=== PATIENT | male | born 1930 | race Caucasian/White ===

== ENCOUNTER 2017-02-08 09:36 | Emergency (ER) | payer OTHER ==
[~2017-02-08] VITALS: Ht 180.3 cm; Wt 83.8 kg
[~2017-02-08 09:36] MED LIST: ATEN25TA PO; DOXA1TAB2 PO; METH4TAB2 PO; METH750T2 PO; OXYC5TAB3 PO
[2017-02-08] MEDS ORDERED: SODIUM CHLORIDE 0.9% 1,000ML IVBOLUS ONE (10:30)
[2017-02-08 10:42] LABS: HEMOGLOBIN 14.6 g/dL (13.7-18.0)
[2017-02-08 10:54] LABS: BLOOD UREA NITROGEN 20 mg/dL (7-18)
[2017-02-08 10:58] LABS: IS PT STATUS REG ER OR PRE ER? YES
[2017-02-08 12:10] VITALS: BP 148/51
== END 2017-02-08 12:38 | disposition home or self-care (01) ==
LOC: ED 11:22
DX: E86.0 Dehydration (principal); E86.1 Hypovolemia; R07.89 Other chest pain; I10 Essential (primary) hypertension; E11.9 Type 2 diabetes mellitus without complications
CPT/HCPCS: 36415; 70450; 71010; 80048; 81003; 82040; 83605; 84484; 85025; 93005; 96360; 99285; J7030

== ENCOUNTER 2018-12-12 07:41 | Observation (INO) | payer MEDICARE, OTHER ==
[~2018-12-12] VITALS: Ht 182.9 cm; Wt 84.9 kg
--- NOTE | 2018-12-12 08:08 | NUR ---
MD IN ROOM. SON AT BEDSIDE.
[2018-12-12 08:48] LABS: BASOPHILS # (AUTO) 0.02 x10^3/uL (0-0.1); BASOPHILS % (AUTO) 0 % (0-1); EOSINOPHILS # (AUTO) 0.12 x10^3/uL (0-0.4); EOSINOPHILS % (AUTO) 2 % (1-7); LYMPHOCYTES # (AUTO) 1.39 x10^3/uL (1-3.4); LYMPHOCYTES % (AUTO) 21 % (22-44); MD NO; MEAN CORPUSCULAR HEMOGLOBIN 31.7 pg (27.5-34.5); MEAN CORPUSCULAR HGB CONC 33.2 g/dL (33.2-36.2); MEAN CORPUSCULAR VOLUME 95.6 fL (81-97); MEAN PLATELET VOLUME 8.8 fL (7.4-10.4); MONOCYTES # (AUTO) 0.58 x10^3/uL (0.2-0.8); MONOCYTES % (AUTO) 9 % (2-9); NEUTROPHILS # (AUTO) 4.64 x10^3/uL (1.8-6.8); NEUTROPHILS % (AUTO) 69 % (42-75); PLATELET COUNT 171 x10^3/uL (130-400); RED BLOOD COUNT 4.31 x10^6/uL (4.38-5.82); RED CELL DISTRIBUTION WIDTH 14.2 % (9.4-14.8)
[2018-12-12 08:59] LABS: INTERNATIONAL NORMALIZED RATIO 0.99 (0.93-1.1); PROTHROMBIN TIME 10.5 Seconds (9.6-11.5)
[2018-12-12 09:01] LABS: ALANINE AMINOTRANSFERASE 28 U/L (12-78); ALBUMIN 3.3 g/dL (3.4-5.0); ANION GAP 6 mmol/L (5-15); CHLORIDE 113 mmol/L (98-107); CREATININE 1.06 mg/dL (0.7-1.3)
[2018-12-12 09:05] LABS: ALKALINE PHOSPHATASE 97 U/L (45-117); BILIRUBIN,TOTAL 0.4 mg/dL (0.2-1.0); TOTAL PROTEIN 7.1 g/dL (6.4-8.2); TROPONIN I < 0.015 ng/mL (0.000-0.045)
--- NOTE | 2018-12-12 09:08 | NUR ---
BLADDER SCAN 290 ML
[2018-12-12] MEDS ORDERED: TAMS0.4C2 PO (10:20)
[2018-12-12] MEDS ORDERED: MIRA25TA PO (10:21)
[2018-12-12] MEDS ORDERED: ATEN25TA PO (10:21)
--- NOTE | 2018-12-12 10:36 | NUR ---
ON PHONE WITH RN FROM TELE. TOLD SHE WILL CALL BACK. RN HAD TO GO TO PT ROOM URGENTLY. AWAITING RETURN CALL.
[2018-12-12] MEDS ORDERED: NITROGLYCERIN 0.4 MG BOTTLE (25 TABS) SL PRN (11:00)
[2018-12-12] MEDS ORDERED: DOCUSATE 100 MG CAPSULE PO PRN (11:00)
[2018-12-12] MEDS ORDERED: GLUCAGON 1 MG IM PRN (11:00)
[2018-12-12] MEDS ORDERED: ONDANSETRON ODT 4 MG PO PRN (11:00)
[2018-12-12] MEDS ORDERED: GUAIFENESIN/DM 200-20MG, 10ML UDC PO PRN (11:00)
[2018-12-12] MEDS ORDERED: DEXTROSE 4 GM TAB.CHEW PO PRN (11:00)
[2018-12-12] MEDS ORDERED: DEXTROSE 50%, 50ML SYRINGE IVPush PRN (11:00)
[2018-12-12] MEDS ORDERED: ACETAMINOPHEN 325 MG TABLET PO PRN (11:00)
[2018-12-12] MEDS ORDERED: NITROGLYCERIN 0.4 MG/SPRAY SL PRN (11:00)
[2018-12-12] MEDS: INSULIN LISPRO 100 UNITS/ML, PEN SQ-INSULIN SCH ×3 (11:00→20:01)
[2018-12-12 11:18] VITALS: BP 178/62
[2018-12-12 11:48] VITALS: BP_SYST 183; BP_SYST 184; BP_DIAS 68; BP_DIAS 71
[2018-12-12] MEDS: hydrALAzine 20 MG/ML, 1ML IVPush PRN ×2 (11:59→22:23)
[2018-12-12] MEDS: HEPARIN 5,000 UNITS/ML, 1ML SQ SCH ×2 (12:00→20:48)
[2018-12-12 12:22] VITALS: BP 165/67
[2018-12-12 12:41] LABS: TROPONIN I < 0.015 ng/mL (0.000-0.045)
[2018-12-12 13:20] LABS: HEMOGLOBIN A1C 6.3 % (4.2-6.3)
[2018-12-12] MEDS ORDERED: LORazepam 1MG TABLET PO PRN ×4 (15:00)
[2018-12-12] MEDS ORDERED: LORazepam 2 MG/ML, 1ML IV PRN ×5 (15:00)
[2018-12-12] MEDS ORDERED: LORazepam 0.5MG TABLET PO PRN (15:00)
[2018-12-12 15:37] LABS: MICROSCOPIC NOT IND
[2018-12-12 15:48] LABS: CULTURE INDICATED? NO
[2018-12-12 16:49] VITALS: BP_SYST 120; BP_SYST 137; BP_SYST 149; BP_DIAS 63; BP_DIAS 65; BP_DIAS 69
[2018-12-12 17:22] LABS: TROPONIN I < 0.015 ng/mL (0.000-0.045)
[2018-12-12 20:42] VITALS: BP 170/66
[2018-12-12] MEDS: SODIUM CHLORIDE FLUSH 10ML SYR IVF SCH (20:48)
[2018-12-12] MEDS: TAMSULOSIN 0.4 MG CAP.ER.24H PO SCH (20:48)
[2018-12-13] VITALS (15 sets, daily range): BP systolic 117–178; BP diastolic 60–74
[2018-12-13] MEDS: HEPARIN 5,000 UNITS/ML, 1ML SQ SCH ×3 (05:03→21:18)
[2018-12-13 05:31] LABS: BASOPHILS # (AUTO) 0.06 x10^3/uL (0-0.1); BASOPHILS % (AUTO) 1 % (0-1); EOSINOPHILS # (AUTO) 0.15 x10^3/uL (0-0.4); EOSINOPHILS % (AUTO) 2 % (1-7); LYMPHOCYTES # (AUTO) 1.43 x10^3/uL (1-3.4); LYMPHOCYTES % (AUTO) 21 % (22-44); MD NO; MEAN CORPUSCULAR HEMOGLOBIN 32.2 pg (27.5-34.5); MEAN CORPUSCULAR HGB CONC 33.6 g/dL (33.2-36.2); MONOCYTES # (AUTO) 0.81 x10^3/uL (0.2-0.8); MONOCYTES % (AUTO) 12 % (2-9); NEUTROPHILS # (AUTO) 4.52 x10^3/uL (1.8-6.8); NEUTROPHILS % (AUTO) 65 % (42-75); PLATELET COUNT 167 x10^3/uL (130-400); RED BLOOD COUNT 4.35 x10^6/uL (4.38-5.82); RED CELL DISTRIBUTION WIDTH 14.7 % (9.4-14.8)
[2018-12-13 05:38] LABS: ANION GAP 10 mmol/L (5-15); CALCIUM 8.7 mg/dL (8.5-10.1); CHLORIDE 112 mmol/L (98-107)
[2018-12-13 05:42] LABS: CHOL/HDL RATIO 3.1; CHOLESTEROL, TOTAL 192 mg/dL (140-239); CREATININE 1.21 mg/dL (0.7-1.3); HDL CHOL % 32 % (26-37); HDL CHOLESTEROL (DIRECT) 61 mg/dL (40-60); LDL CHOLESTEROL,CALCULATED 106 mg/dL (54-169); LDL/HDL RATIO 1.7 (0.5-3.0); TRIGLYCERIDES 126 mg/dL (50-200); VLDL CHOLESTEROL 25 mg/dL (0-25)
[2018-12-13] MEDS: INSULIN LISPRO 100 UNITS/ML, PEN SQ-INSULIN SCH ×4 (07:00→21:00)
[2018-12-13] MEDS ORDERED: REGADENOSON 0.4 MG/5 ML SYRINGE ONE (08:24)
[2018-12-13] MEDS: SODIUM CHLORIDE FLUSH 10ML SYR IVF SCH ×2 (08:49→21:19)
[2018-12-13] MEDS: ATENOLOL 25 MG TABLET PO SCH (08:50)
[2018-12-13] MEDS: AMLODIPINE 5 MG TABLET PO SCH (18:42)
[2018-12-13] MEDS: TAMSULOSIN 0.4 MG CAP.ER.24H PO SCH (21:19)
[2018-12-14 02:48] VITALS: BP 162/76
[2018-12-14] MEDS: HEPARIN 5,000 UNITS/ML, 1ML SQ SCH (05:03)
[2018-12-14 07:25] VITALS: BP 165/61
[2018-12-14] MEDS: INSULIN LISPRO 100 UNITS/ML, PEN SQ-INSULIN SCH ×2 (08:05→12:29)
[2018-12-14] MEDS: AMLODIPINE 5 MG TABLET PO SCH (08:10)
[2018-12-14] MEDS: ATENOLOL 25 MG TABLET PO SCH (08:10)
[2018-12-14 10:30] VITALS: BP 146/59
[2018-12-14] MEDS: SODIUM CHLORIDE FLUSH 10ML SYR IVF SCH (12:29)
[2018-12-14] MEDS ORDERED: AMLO-150 PO (12:38)
== END 2018-12-14 13:37 | disposition home or self-care (01) ==
LOC: ED 10:01 → INTOOBSV 10:02 → OBSVTOIN 10:02 → EDIP 10:02 → 5SO 11:10 → DCLOUNGE 12-14 13:15
PROVIDERS: ADMIT Family Medicine; ATTEND Family Medicine
DX: R07.89 Other chest pain (principal); R42 Dizziness and giddiness; E11.9 Type 2 diabetes mellitus without complications; R33.9 Retention of urine, unspecified; I45.10 Unspecified right bundle-branch block; I35.1 Nonrheumatic aortic (valve) insufficiency; E86.1 Hypovolemia; Z79.899 Other long term (current) drug therapy
CPT/HCPCS: 36415; 71045; 78452; 80048; 80053; 80061; 81003; 82962; 83036; 83690; 83735; 83880; 84439; 84443; 84484; 85025; 85610; 85730; 93005; 93017; 93306; 96372; 96374; 96375; 96376; 97161; 97165; 99285; A9502; C9898; G0378; J0360; J1644; J2060; J2785; 99283; J1815